=== PATIENT | male | born 1990 | race African-American/Black ===

== ENCOUNTER 2017-10-09 03:21 | Emergency (ER) | payer OTHER ==
[~2017-10-09] VITALS: Ht 165.1 cm; Wt 58.1 kg
[2017-10-09 03:21] VITALS: BP_SYST 107
[2017-10-09 03:35] VITALS: BP_SYST 107
== END 2017-10-09 03:35 ==
LOC: SED 03:21
DX: Z02.89 Encounter for other administrative examinations (principal)